=== PATIENT | female | born 1975 | race African-American/Black ===

== ENCOUNTER 2020-03-18 23:21 | Inpatient (IN) | payer MEDICAID, OTHER ==
[~2020-03-18] VITALS: Ht 167.6 cm; Wt 91.0 kg
[2020-03-19] MEDS ORDERED: HALOPERIDOL 5 MG TABLET PO PRN (01:15)
[2020-03-19] MEDS ORDERED: LORazepam 2 MG TABLET PO PRN (01:15)
[2020-03-19] MEDS ORDERED: ZOLPIDEM TARTRATE 10 MG TABLET PO PRN (01:15)
[2020-03-19 08:00] VITALS: BP 127/73
[2020-03-19] MEDS ORDERED: ALBUTEROL SULFATE HFA 90 MCG/PUFF 8 GM INHALER IH PRN (09:15)
[2020-03-19] MEDS ORDERED: MAGNESIUM HYDROXIDE SUSPENSION 30 ML UDCUP PO PRN (09:15)
[2020-03-19] MEDS ORDERED: MAG HYDROX/AL HYDROX/SIMETH ES 30 ML SUSPENSION UDCUP PO PRN (09:15)
[2020-03-19] MEDS ORDERED: DOCUSATE SODIUM 100 MG CAPSULE PO PRN (09:15)
[2020-03-19] MEDS ORDERED: LOPERAMIDE HCL 2 MG CAPSULE PO PRN (09:15)
[2020-03-19] MEDS ORDERED: IBUPROFEN 400 MG TABLET PO PRN (09:15)
[2020-03-19] MEDS ORDERED: GuaiFENesin/D-METHORPHAN [SUGAR-FREE] 200-20MG/10 ML SYRUP UDCUP PO PRN (09:15)
[2020-03-19] MEDS ORDERED: ONDANSETRON HCL 4 MG TABLET PO PRN (09:15)
[2020-03-19] MEDS ORDERED: PETROLATUM,WHITE 28 GM JELLY TP PRN (09:15)
[2020-03-19] MEDS ORDERED: CloNIDine HCL 0.1 MG TABLET PO PRN (09:15)
[2020-03-19] MEDS ORDERED: NICOTINE 14 MG/24 HOUR PATCH TD PRN (09:15)
[2020-03-19 09:21] VITALS: BP 130/70
[2020-03-20 00:10] VITALS: BP 109/68
[2020-03-20] MEDS: ACETAMINOPHEN 325 MG TABLET PO PRN (00:14)
[2020-03-20 08:00] VITALS: BP 118/70
[2020-03-20] MEDS ORDERED: DiphenhydrAMINE HCL 50 MG/ML VIAL IM ONE (10:15)
[2020-03-20] MEDS ORDERED: HALOPERIDOL LACTATE 5 MG/ML VIAL IM ONE (10:15)
[2020-03-20] MEDS ORDERED: LORazepam 2 MG/ML VIAL IM ONE (10:15)
[2020-03-21] MEDS: OLANZapine 5 MG TABLET PO SCH ×2 (12:45→20:33)
[2020-03-21] MEDS: ACETAMINOPHEN 325 MG TABLET PO PRN (13:46)
[2020-03-22] MEDS: OLANZapine 5 MG TABLET PO SCH (09:00)
== END 2020-03-22 14:15 | disposition home or self-care (01) | DRG 885 ==
LOC: EMS 23:21 → 3EI 03-19 01:15 → 3EC 03-20 10:30
PROVIDERS: ADMIT Psychiatry & Neurology Psychiatry; ATTEND Psychiatry & Neurology Psychiatry
DX: F20.0 Paranoid schizophrenia (principal); G93.40 Encephalopathy, unspecified; R45.851 Suicidal ideations; I10 Essential (primary) hypertension; Z59.0 Homelessness; Z91.14 Patient's other noncompliance with medication regimen; Z56.0 Unemployment, unspecified
CPT/HCPCS: J1200; J1630; J2060